=== PATIENT | male | born 1965 | race African-American/Black ===

== ENCOUNTER 2023-07-26 19:42 | Emergency (ER) | payer OTHER ==
[~2023-07-26] VITALS: Ht 172.7 cm; Wt 88.6 kg
[2023-07-26 21:10] VITALS: TEMP 98
[2023-07-26] MEDS ORDERED: METH4TAB3 PO (22:47)
[2023-07-26] MEDS ORDERED: KETOROLAC TROMETHAMINE 30 MG/ML VIAL IM ONE (23:00)
[2023-07-26] MEDS: DEXAMETHASONE SOD PHOS 4 MG/ML 5 ML VIAL IM ONE (23:17)
[2023-07-26] MEDS: KETOROLAC TROMETHAMINE 60 MG/2 ML VIAL IM ONE (23:17)
[2023-07-26 23:23] VITALS: BP 124/76; PULSE 75; RESP 16
== END 2023-07-26 23:28 | disposition home or self-care (01) ==
LOC: EMS 19:44
DX: M54.32 Sciatica, left side (principal); M54.10 Radiculopathy, site unspecified; E78.00 Pure hypercholesterolemia, unspecified; I10 Essential (primary) hypertension; F17.210 Nicotine dependence, cigarettes, uncomplicated; F12.90 Cannabis use, unspecified, uncomplicated; Z98.890 Other specified postprocedural states
CPT/HCPCS: 99284; 96372; J1100; J1885

== ENCOUNTER 2023-08-18 19:18 | Emergency (ER) | payer OTHER ==
[~2023-08-18] VITALS: Ht 172.7 cm; Wt 90.0 kg
[~2023-08-18 19:18] MED LIST: METH4TAB3 PO
[2023-08-18 19:57] VITALS: BP 144/71; PULSE 77; RESP 16; TEMP 97.8
== END 2023-08-18 23:05 | disposition left against medical advice (07) ==
LOC: EMS 19:18
DX: M54.9 Dorsalgia, unspecified (principal); Z53.21 Procedure and treatment not carried out due to patient leaving prior to being seen by health care provider